=== PATIENT | female | born 1945 | race American Indian/Alaskan Native ===

== ENCOUNTER 2016-12-27 11:51 | Emergency (ER) | payer MEDICARE ==
[2016-12-27 14:04] LABS: Basophils % (Auto) 0.5 % (0.0-1.8); Hematocrit 32.2 % (30.3-42.9); Hemoglobin 10.4 gm/dl (10.1-14.3); Mean Corpuscular HGB Conc 32 % (30-34); Mean Corpuscular Hemoglobin 29 pg (28-32); Mean Corpuscular Volume 91 fl (79-97); Platelet Count 327 K/mm3 (140-440); Red Blood Count 3.55 M/mm3 (3.65-5.03); Red Cell Distribution Width 16.3 % (13.2-15.2); White Blood Count 11.4 K/mm3 (4.5-11.0)
[2016-12-27 14:10] LABS: BUN/Creatinine Ratio 7.08; Calcium 8.2 mg/dL (8.4-10.2); Chloride 99.4 mmol/L (98-107)
--- NOTE | 2016-12-27 17:38 | Emergency Department Report ---
ED N/V/D HPI - General Chief complaint: Nausea/Vomiting/Diarrhea Stated complaint: N/V/D Time Seen by Provider: 12/27/16 14:29 Source: patient Mode of arrival: Stretcher Limitations: Physical Limitation - History of Present Illness MD complaint: nausea, vomiting, diarrhea -: Gradual Description of Vomiting: food contents Description of Diarrhea: water Associated Abdominal Pain: No Radiation: none Severity: mild Quality: aching Consistency: intermittent Improves with: none Worsens with: none Associated Symptoms: denies: myalgias, chest pain, cough, fever/chills, loss of appetite, nausea/vomiting, rash, dysuria, shortness of breath, syncope, weakness - Related Data Previous Rx's Medication Instructions Recorded Last Taken Type Ondansetron [Zofran Odt] 4 mg PO BID #14 [facility] 12/27/16 Unknown Rx Ondansetron [Zofran Odt] 4 mg PO Q8HR #14 [facility] 12/27/16 Unknown Rx Allergies Allergy/AdvReac Type Severity Reaction Status Date / Time lactose Allergy Intermediate Anaphylaxis Verified 12/27/16 13:20 shellfish derived Allergy Anaphylaxis Verified 12/27/16 13:20 ED Review of Systems ROS: Stated complaint: N/V/D Other details as noted in HPI Comment: All other systems reviewed and negative ED Past Medical Hx - Past Medical History Previous Medical History?: Yes Hx Hypertension: Yes Hx Renal Disease: Yes (mwf) Additional medical history: A-Fib--Blind; elevated INR - Surgical History Past Surgical History?: Yes Additional Surgical History: G-Tube - Social History Smoking Status: Never Smoker Substance Use Type: None - Medications Home Medications: Home Medications Medication Instructions Recorded Confirmed Last Taken Type Ondansetron [Zofran Odt] 4 mg PO BID #14 [facility] 12/27/16 Unknown Rx Ondansetron [Zofran Odt] 4 mg PO Q8HR #14 [facility] 12/27/16 Unknown Rx ED Physical Exam - General Limitations: Physical Limitation General appearance: alert, in no apparent distress - Head Head exam: Present: atraumatic, normocephalic - Eye Eye exam: Present: normal appearance, PERRL, EOMI - ENT ENT exam: Present: normal exam, normal orophraynx, mucous membranes moist - Neck Neck exam: Present: normal inspection - Respiratory Respiratory exam: Present: normal lung sounds bilaterally. Absent: respiratory distress - Cardiovascular Cardiovascular Exam: Present: regular rate, normal rhythm. Absent: systolic murmur, diastolic murmur, rubs, gallop - GI/Abdominal GI/Abdominal exam: Present: soft, normal bowel sounds - Extremities Exam Extremities exam: Present: normal inspection - Back Exam Back exam: Present: normal inspection - Neurological Exam Neurological exam: Present: alert, oriented X3 - Psychiatric Psychiatric exam: Present: normal affect, normal mood - Skin Skin exam: Present: warm, dry, intact, normal color. Absent: rash ED Course Vital Signs 12/27/16 12/27/16 12/27/16 13:07 13:16 13:20 Temperature 98.0 F Pulse Rate 57 L 54 L Respiratory 13 Rate Blood Pressure 121/47 121/47 O2 Sat by Pulse 97 100 Oximetry 12/27/16 12/27/16 12/27/16 13:30 13:41 13:46 Temperature Pulse Rate 52 L 57 L Respiratory 14 20 11 L Rate Blood Pressure 121/47 121/47 O2 Sat by Pulse 100 100 82 L Oximetry 12/27/16 12/27/16 12/27/16 14:00 14:16 14:30 Temperature Pulse Rate 56 L 55 L 57 L Respiratory 10 L 12 18 Rate Blood Pressure 121/47 96/58 96/58 O2 Sat by Pulse 95 97 Oximetry 12/27/16 12/27/16 12/27/16 14:46 15:00 15:16 Temperature Pulse Rate 54 L 53 L 57 L Respiratory 8 L 12 16 Rate Blood Pressure 118/92 122/46 122/46 O2 Sat by Pulse 95 100 Oximetry 12/27/16 12/27/16 12/27/16 15:30 15:46 16:00 Temperature Pulse Rate 54 L 55 L 64 Respiratory 10 L 11 L 17 Rate Blood Pressure 122/46 122/46 122/46 O2 Sat by Pulse 100 100 100 Oximetry 12/27/16 12/27/16 12/27/16 16:16 16:30 16:46 Temperature Pulse Rate 60 56 L 63 Respiratory 14 17 13 Rate Blood Pressure 117/41 117/41 117/41 O2 Sat by Pulse 100 100 100 Oximetry 12/27/16 17:00 Temperature Pulse Rate 62 Respiratory 10 L Rate Blood Pressure 117/41 O2 Sat by Pulse 100 Oximetry ED Medical Decision Making - Lab Data Result diagrams: 12/27/16 13:35 12/27/16 13:35 - EKG Data When compared to previous EKG there are: no significant change Interpretation: no acute changes - Radiology Data Radiology results: report reviewed, image reviewed - Medical Decision Making patient doing well, tolerating po here ij the.er, , no need for admission at this time, Critical care attestation.: If time is entered above; I have spent that time in minutes in the direct care of this critically ill patient, excluding procedure time. ED Disposition Clinical Impression: Nausea & vomiting Disposition: DC-01 TO HOME OR SELFCARE Is pt being admited?: No Does the pt Need Aspirin: No Condition: Fair Instructions: Acute Nausea and Vomiting (ED) Prescriptions: Ondansetron [Zofran Odt] 4 mg PO Q8HR #14 [facility] Ondansetron [Zofran Odt] 4 mg PO BID #14 [facility] Referrals: PRIMARY CARE, [Primary Care Provider] - 3-5 Days Time of Disposition: 17:39
[2016-12-27 17:43] LABS: Bilirubin,Urine NEG (Negative); Blood,Urine MOD (Negative); Ketones,Urine NEG (Negative); Leukocyte Esterase,Urine MOD (Negative); Nitrite,Urine NEG (Negative); Urobilinogen,Urine < 2.0 mg/dL (<2.0)
[2016-12-27 17:45] LABS: WBC,Urine > 182.0 /HPF (0.0-6.0)
[2016-12-27 19:01] VITALS: BP 157/58
== END 2016-12-27 21:10 | disposition home or self-care (01) ==
LOC: ED 11:51
DX: R11.2 Nausea with vomiting, unspecified (principal); I10 Essential (primary) hypertension; I48.91 Unspecified atrial fibrillation
CPT/HCPCS: 36415; 80048; 81001; 85025; 99284